=== PATIENT | female | born 1995 | race Two or more races ===

== ENCOUNTER 2025-06-01 21:50 | Emergency (ER) | payer SELFPAY ==
[2025-06-01 21:52] VITALS: BP 112/74
[2025-06-01 22:20] VITALS: BP 96/69
--- NOTE | 2025-06-01 22:23 | ED.GENMED ---
History of Present Illness
General
Chief Complaint: Allergic Reaction
Source: patient
Time Seen by Provider: 06/01/25 22:13
History of Present Illness
History of Present Illness:
30-year-old female presents to the emergency room for evaluation reaction medication. Patient took an antibiotic which she believes to be ceftriaxone or something similar as well as an antifungal (? diflucan) for genital yeast infection. Shortly
thereafter she began feeling itchy all over as well is developing redness and hives. She felt like it was hard to take a deep breath. Symptoms actually have improved somewhat at the time my evaluation without intervention. She denies any previous
allergic reactions. She denies any significant past medical history. History obtained with the help of [facility] paraprofessional interpreter
Phy Exam
Physical Exam
Physical Exam:
General: Awake, Alert, Oriented X3. No acute distress.
Vitals: unremarkable
Head: Atraumatic
Eyes: Pupils equal, EOMI
Throat: Airway intact, no exudates no stridor, no angioedema
Neck: Trachea midline
Lungs: Clear and equal b/l
Heart: Regular rate, no murmurs
Abd: Soft, Nontender, No pulsatile mass
Neuro: Nonfocal
Skin: Warm, dry, no diffuse erythema and urticaria
Extremities: pulses equal b/l, no edema
Course
Orders/Labs/Results
Orders:
Orders
06/01/25 22:13
Dexamethasone Sod Phosphate [Decadron] 40 mg .ROUTE .STK-MED ONE
Diphenhydramine [Benadryl] 50 mg .ROUTE .STK-MED ONE
EPINEPHrine PF [Adrenalin] 1 mg .ROUTE .STK-MED ONE
06/01/25 22:14
Famotidine [Pepcid] 40 mg .ROUTE .STK-MED ONE
06/01/25 22:22
0.9% Sodium Chloride 1000 ml [Nss] 1,000 ml IV BOLUS
Dexamethasone Sod Phosphate [Decadron] 10 mg IV NOW STA
Diphenhydramine [Benadryl] 50 mg IV NOW STA
Famotidine [Pepcid] 20 mg IV NOW STA
Vital Signs
Initial and Last Documented VS:
Initial Vital Signs
Temp Pulse Resp BP Pulse Ox
97.9 F 82 20 112/74 100
06/01/25 21:52 06/01/25 21:52 06/01/25 21:52 06/01/25 21:52 06/01/25 21:52
Last Documented Vital Signs
Temp Pulse Resp BP Pulse Ox
97.9 F 75 18 101/65 100
06/01/25 21:52 06/01/25 23:48 06/01/25 23:48 06/01/25 23:48 06/01/25 23:48
MDM/Problems Addressed
Differential Diagnosis Includes:
Allergic reaction to antifungal, allergic reaction to cephalosporin,
MDM/Problems Addressed:
Patient presents with hives, shortness of breath after taking both an antibiotic and antifungal. Patient had complete resolution of her symptoms with treatment here which included Benadryl, steroid and Pepcid. Patient remained hemodynamically
stable. After period of observation remained asymptomatic. Will discharge her with a prescription for an EpiPen, course of prednisone and recommend she take Benadryl for the next 24 hours. Contact given for web site admin.
*Pulse Oximetry
SaO2: 100
Oxygen Mode of Delivery: Room air
Patient hypoxic: no
*Critical Care Note
Total Time (30-74mins, 75-104mins- exclusive of procedures): Not Applicable
ED Attending Note
-
Portions of this chart may have been created with voice recognition software.� Occasional wrong word or��sound alike� substitutions may have occurred due to the inherent limitations of voice recognition software.
Discharge Plan
Departure
Patient Disposition: Home (Routine Discharge)
Date of Disposition: 06/02/25
Time of Disposition: 00:15
Patient with high blood pressure during this ER visit?: No
Condition: Good
Discharge Problem:
Allergic reaction
Instructions: Allergic reaction - ED discharge instructions
Prescriptions:
New
epinephrine [EpiPen 2-Reji] 0.3 mg/0.3 mL auto-injector
0.3 mg IM Q5-15M PRN (Reason: anaphylaxis) Qty: 2 0RF
prednisone 20 mg tablet
40 mg PO DAILY Qty: 6 0RF
Referrals:
Antonia Saleem MD [Consulting Staff, Bi Lead]
PRIVATE,PHYSICIAN [Family Provider, Internal Medicine]
Activity Restrictions/Additional Instructions:
You came to the emergency room tonight for an allergic reaction. I have sent a prescription for prednisone, which is a steroid, for you to take for the next 3 days. You should take 2 pills a day for 3 days. I have also sent a prescription for an
EpiPen in case you have a serious allergic reaction you can administer this. Do not take the antibiotic that was prescribed. Call the doctor who prescribed it to obtain a different antibiotic. I have given you contact information for one of our
printing specialist that you can call if you would like to follow-up with them. I would also take 25 mg of Benadryl every 6 hours for the next 24 hours.
Interventions
Interventions:
*Risk Screen - Suicide Last Done: 06/01/25 22:20
*General Assessment Last Done: 06/01/25 22:25
*Neglect/Abuse Screening Last Done: 06/01/25 22:25
*ED- Fall Risk Assessment Last Done: 06/01/25 22:25
*ED COVID-19 Vaccine History Last Done: 06/01/25 22:25
*Nursing Disposition Last Done: 06/02/25 00:45
ED- Cardiac Assessment Last Done: 06/01/25 22:25
ED- Pulmonary Assessment Last Done: 06/01/25 22:25
ED-Skin Assessment Last Done: 06/01/25 22:25
Discharge Date and Time
Discharge Date/Time: 06/02/25 01:10
Print Language: GRENADIAN
[2025-06-01] MEDS: NSS 1000 IV (22:26)
[2025-06-01] MEDS: DECADRON 10 MG IV (22:27)
[2025-06-01] MEDS: BENADRYL 50 MG IV (22:28)
[2025-06-01] MEDS: PEPCID 20 MG IV (22:28)
[2025-06-01 23:00] VITALS: BP 95/67
[2025-06-01 23:48] VITALS: BP 101/65
== END 2025-06-02 01:10 | disposition home or self-care (01) ==
LOC: EMR 21:50
PROVIDERS: EMERGENCY PHYSICIAN Emergency Medicine
DX: T78.40XA Allergy, unspecified, initial encounter (principal); X58.XXXA Exposure to other specified factors, initial encounter; L50.9 Urticaria, unspecified
CPT/HCPCS: 96374; 96375; 96361; 99284